=== PATIENT | male | born 1985 | race Native Hawaiian/Other Pacific Islander ===

== ENCOUNTER 2023-10-27 02:57 | Emergency (ER) | payer OTHER ==
[~2023-10-27] VITALS: Ht 180.3 cm; Wt 79.5 kg
[2023-10-27 03:01] VITALS: BP 142/85; PULSE 85; RESP 16
[2023-10-27] MEDS ORDERED: LIDOCAINE 1% 10 ML VIAL SQ ONE (04:00)
[2023-10-27] MEDS ORDERED: PERTUSS(ACELL),DIPH,TET VAC/PF 0.5 ML SYRINGE IM. ONE ×2 (04:41→04:45)
== END 2023-10-27 04:58 | disposition home or self-care (01) ==
LOC: EMS 02:59
DX: S02.2XXA Fracture of nasal bones, initial encounter for closed fracture (principal); F17.210 Nicotine dependence, cigarettes, uncomplicated; W26.8XXA Contact with other sharp object(s), not elsewhere classified, initial encounter; Y93.89 Activity, other specified; Y92.89 Other specified places as the place of occurrence of the external cause; Y99.0 Civilian activity done for income or pay
CPT/HCPCS: 99283; 70160; 90715; 90471; 12013; J3490